=== PATIENT | female | born 1995 | race Caucasian/White ===

== ENCOUNTER 2024-05-06 12:37 | Outpatient (CLI) | payer MEDICAID, SELFPAY ==
--- NOTE | 2024-05-06 12:37 | CT_ITS ---
FINAL REPORT TECHNIQUE: Thin section axial CT images of the facial bones and sinuses were obtained without contrast. Coronal and sagittal reformatted images were also obtained.This study was performed with techniques to keep radiation doses as low as reasonably achievable, (ALARA). Individualized dose reduction techniques using automated exposure control or adjustment of mA and/or kV according to the patient's size were employed. CLINICAL HISTORY: sinusitis COMPARISON: None FINDINGS: There is no evidence of mucosal thickening. No fluid levels are identified. The ostiomeatal units have an unremarkable appearance. The nasal septum is in the midline. No fracture or acute bony abnormality is identified. IMPRESSION: No focal abnormality identified of the sinuses. Reviewed, Interpreted and Dictated by Matias Brandon III, MD Transcribed by Ese Montes De Oca Authenticated and [facility]
--- NOTE | 2024-05-06 12:37 | US_ITS ---
FINAL REPORT TECHNIQUE: Sonographic images of the thyroid were obtained. CLINICAL HISTORY: Thyroid nodule FINDINGS: THYROID ULTRASOUND The right thyroid gland measures 5.5 x 2.1 x 1.5 cm. The left thyroid gland measures 5.4 x 1.8 x 1.6 cm. The isthmus measures 0.3 cm The thyroid is enlarged and hypervascular bilaterally. This can be seen with thyroiditis. In the left lobe, there is a 4 mm, solid, hypoechoic TI-RADS 4 nodule. IMPRESSION: Enlarged hypervascular thyroid can be seen with thyroiditis. TI-RADS 4 nodule in the left lobe. No additional follow-up is required. Reviewed, Interpreted and Dictated by Matias Brandon III, MD Transcribed by Lora Lloyd Authenticated and . [facility]
== END 2024-05-06 23:59 | disposition home or self-care (01) ==
LOC: RAD 12:37
PROVIDERS: PCP Nurse Practitioner Family; Visit Provider Nurse Practitioner
DX: E06.9 Thyroiditis, unspecified (principal); J32.9 Chronic sinusitis, unspecified
CPT/HCPCS: 70486; 76536

== ENCOUNTER 2024-05-08 13:56 | Outpatient (CLI) | payer MEDICAID, SELFPAY ==
[2024-05-08 15:22] LABS: Free T4 (Free Thyroxine) 1.07 ng/dl (0.78-2.19)
[2024-05-08 15:27] LABS: Triiodothryronine (T3) Uptake 34 % (23.5-40.5)
[2024-05-08 15:41] LABS: Thyroid Stimulating Hormone 1.47 uIU/mL (0.465-4.68)
[2024-05-10 08:38] LABS: Thyroid Peroxidase Antibodies 407 IU/mL (0-34)
[2024-05-13 21:09] LABS: D001-IgE D pteronyssinus <0.10 kU/L (Class 0); D002-IgE D farinae <0.10 kU/L (Class 0); E001-IgE Cat Dander <0.10 kU/L (Class 0); E005-IgE Dog Dander <0.10 kU/L (Class 0); E072-IgE Mouse Urine <0.10 kU/L (Class 0); G002-IgE Bermuda Grass <0.10 kU/L (Class 0); G006-IgE Timothy Grass <0.10 kU/L (Class 0); I006-IgE Cockroach, German <0.10 kU/L (Class 0); Immunoglobulin E, Total 5 IU/mL (6-495); M001-IgE Penicillium chrysogen <0.10 kU/L (Class 0); M002-IgE Cladosporium herbarum <0.10 kU/L (Class 0); M003-IgE Aspergillus fumigatus <0.10 kU/L (Class 0); M006-IgE Alternaria alternata <0.10 kU/L (Class 0); T001-IgE Maple/Box Elder <0.10 kU/L (Class 0); T003-IgE Common Silver Birch <0.10 kU/L (Class 0); T006-IgE Cedar, Mountain <0.10 kU/L (Class 0); T007-IgE Oak, White <0.10 kU/L (Class 0); T008-IgE Elm, American <0.10 kU/L (Class 0); T010-IgE Walnut <0.10 kU/L (Class 0); T011-IgE Maple Leaf Sycamore <0.10 kU/L (Class 0); T014-IgE Cottonwood <0.10 kU/L (Class 0); T015-IgE Ash, White <0.10 kU/L (Class 0); T022-IgE Pecan, Hickory <0.10 kU/L (Class 0); T070-IgE White Mulberry <0.10 kU/L (Class 0); W001-IgE Ragweed, Short <0.10 kU/L (Class 0); W011-IgE Thistle, Russian <0.10 kU/L (Class 0); W014-IgE Pigweed, Common <0.10 kU/L (Class 0); W018-IgE Sheep Sorrel <0.10 kU/L (Class 0)
== END 2024-05-08 23:59 | disposition home or self-care (01) ==
LOC: LAB 13:57
PROVIDERS: PCP Nurse Practitioner Family; Visit Provider Otolaryngology
DX: J32.9 Chronic sinusitis, unspecified (principal); E06.9 Thyroiditis, unspecified
CPT/HCPCS: 36415; 82785; 84439; 84443; 84479; 86003; 86376